=== PATIENT | male | born 1965 | race African-American/Black ===

== ENCOUNTER 2017-02-21 19:10 | Inpatient (IN) | payer MEDICARE, OTHER ==
--- NOTE | 2017-02-21 20:03 | ED Physician Chart ---
Chief Complaint/HPI - Patient Information Date Seen:: 02/21/17 Time Seen:: 19:45 Chief Complaint:: sexual preoccupation History of Present Illness:: Patient was sent here from the [facility] facility where he resides. He has reportedly been exhibiting sexual preoccupation. Exactly what this sexual preoccupation is was not stated. Allergies:: Allergies Allergy/AdvReac Type Severity Reaction Status Date / Time No Known Allergies Allergy Verified 02/21/17 19:51 Vitals:: Vital Signs - 8 hr 02/21/17 19:15 Temp 97.1 F HR 63 RR 18 BP 103/70 O2 Sat % 97 Historian:: Patient, EMS Review:: Nurse's Note Reviewed Review of Systems - Review of Systems General/Constitutional: No fever, No chills Skin: No skin lesions Head: No headache Eyes: No loss of vision ENT: No earache Neck: No neck pain, No swelling Cardio Vascular: No chest pain, No palpitations GI: Nausea, No nausea, No vomiting G/U: No dysuria, No frequency Musculoskeletal: No bone or joint pain Endocrine: No polyuria Psychiatric: Prior psych history Hematopoietic: No bruising Allergic/Immuno: No urticaria Neurological: No syncope, Focal symptoms Past Medical History - Past Medical History Past Medical History: CVA/TIA Family History: Diabetes Mel[place] Social History: Smoker, Alcohol, Other (drinks 2-3 beers per day) Surgical History: None Psychiatricy History: Schizophrenia Physical Exam - Physical Examination General/Constitutional: Awake, No distress Head: Atraumatic Eyes: Lids, conjuctiva normal, PERRL Skin: Nl inspection, No rash, No skin lesions, No ecchymosis ENMT: External ears, nose nl, TM canals nl Neck: No nuchal rigidity Respiratory: Nl effort/Exclusion, Clear to Auscultation Cardio Vascular: No murmur, gallop, rubs GI: No tenderness/rebounding/guarding : No CVA tenderness Other Extremities comments:: Paralysis left arm with flexion deformity left wrist; weakness left leg Other Neuro/Psych comments:: Left-sided paralysis as stated under musculoskeletal Labs/Radiology/EKG Results - Lab Results Comments:: Laboratory Results - last 24 hr 02/21/17 02/21/17 20:45 20:45 WBC 7.0 RBC 5.33 Hgb 15.0 Hct 45.9 MCV 86.2 MCH 28.1 MCHC Differential 32.6 RDW 12.1 Plt Count 261 MPV 6.7 Neutrophils % 63.7 Lymphocytes % 27.9 Monocytes % 5.2 Eosinophils % 3.2 Basophils % 0.0 Sodium 134 L Potassium 4.2 Chloride 103 Carbon Dioxide 27.2 Anion Gap 8.0 BUN 9 Creatinine 0.8 Est GFR ( Amer) > 60.0 Est GFR (Non-Af Amer) > 60.0 BUN/Creatinine Ratio 11.3 Glucose 122 H Calcium 9.6 Triglycerides 115 Cholesterol 116 LDL Cholesterol Direct 67 L HDL Cholesterol 39 - EKG Interpretations Rate & Rhythm: NSR at rate of 71 ED Septic Shock - . 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
[2017-02-21 20:53] LABS: % EOSINOPHILS 3.2 % (0.0-5.0); % LYMPHOCYTES 27.9 % (20.0-50.0); % MONOCYTES 5.2 % (2.0-10.0); % NEUTROPHILS 63.7 % (40.0-80.0); HEMATOCRIT 45.9 % (39.0-49.0); MEAN CELL VOLUME 86.2 fl (80-99); MEAN CORPUSCULAR HEMOGLOBIN 28.1 pg (26.0-30.0); MEAN CORPUSCULAR HGB CONC 32.6 pg (28.0-36.0); MEAN PLATELET VOLUME 6.7 fl; NEUTROPHILE ABSOLUTE 4.4 Th/cmm (1.8-8.0); PLATELET COUNT 261 Th/cmm (150-400); RED BLOOD COUNT 5.33 Mil/cmm (4.30-5.70); RED CELL DISTRIBUTION WIDTH 12.1 % (11.5-20.0)
[2017-02-21 21:07] LABS: BUN - UREA NITROGEN 9 mg/dL (7-25); BUN/CREATININE RATIO 11.3; CALCIUM SERUM 9.6 mg/dL (8.6-10.3); CARBON DIOXIDE 27.2 mEq/L (21.0-31.0); CHLORIDE 103 mEq/L (98-107); CHOLESTEROL 116 mg/dL (<200); CREATININE - SERUM 0.8 mg/dL (0.7-1.3); GLUCOSE 122 mg/dL (70-105); POTASSIUM SERUM 4.2 mEq/L (3.5-5.1); SODIUM SERUM 134 mEq/L (136-145); TRIGLYCERIDES 115 mg/dL (<150)
[2017-02-21] MEDS ORDERED: Maalox 30 mL Cup PO PRN (22:25)
[2017-02-21] MEDS ORDERED: Magnesium Hydroxide (MOM) 30 mL UDC PO PRN (22:25)
[2017-02-21 22:54] VITALS: BP 95/56
[2017-02-22] MEDS: Polyvinyl Alcohol Ophth Soln 15 mL Bottle EACH EYE SCH ×3 (09:11→17:08)
[2017-02-22] MEDS: Insulin Detemir 100 units/mL 10mL Vial SUBQ SCH ×2 (09:47→17:31)
[2017-02-22] MEDS: INSULIN ASPART SLIDING SCALE 100 UNITS/ML UNIT SUBQ SCH ×3 (11:44→20:11)
[2017-02-22 13:14] LABS: HEP B CORE IGM Negative (Negative); HEP C ANTIBODY <0.1 s/co ratio (0.0-0.9)
--- NOTE | 2017-02-22 20:06 | History & Physical ---
ADMIT DATE: 02/22/2017 INTERNAL MEDICINE CONSULTATION HISTORY OF PRESENT ILLNESS: The patient is a 51-year-old male seen in Geropsych unit. PAST MEDICAL HISTORY: Significant for diabetes mellitus, diabetic angiopathy, neuropathy, hypertension, coronary artery disease, hyperlipidemia, peptic ulcer disease, gastritis, arthritis, history of CVA with left hemiplegia. SOCIAL HISTORY: Prior history of smoking. No history of drug or alcohol abuse. FAMILY HISTORY: Not available. REVIEW OF SYSTEMS: The patient ____ to have left-sided weakness, no chest pain, occasional cough, no nausea, no vomiting, extensive arthritic pain. PHYSICAL EXAMINATION: GENERAL: Average male in no obvious respiratory distress. VITAL SIGNS: Include a blood pressure 140/80, heart rate 80, respiration rate of 18. SKIN: No cellulitis. HEENT: Normal conjunctivae. NECK: Supple. LUNGS: Shows occasional rhonchi, occasional crepitation. No bronchial breathing. HEART: S1 and S2 present. ABDOMEN: Soft, minimal epigastric tenderness. Bowel sounds pretty good. EXTREMITIES: Show arthritis. NEUROLOGIC: The patient has left hemiplegia. LABORATORY DATA: Include white count was 7, hemoglobin 15, hematocrit 40.9, platelet count of 261. Sodium 134, potassium 4.2, chloride 103, bicarb 27.2, BUN 9, creatinine 0.8, glucose 122. In view of the exam, the patient's medical diagnoses include diabetes mellitus, diabetic angiopathy, neuropathy, nephropathy, hypertension, hyperlipidemia, coronary artery disease, peptic ulcer disease, gastritis, arthritis, osteoporosis, chronic obstructive pulmonary disease, cerebrovascular accident with left hemiplegia. PLAN: The patient's medicines include sliding scale and Levemir, Zestril, Glucophage, Ambien, Lipitor, Mylanta, Tylenol. Thank you, Dr. Alba for letting me see your patient. JOB# [id number]
[2017-02-22] MEDS: Atorvastatin Calcium 10 MG TAB PO SCH (20:34)
[2017-02-23] MEDS: INSULIN ASPART SLIDING SCALE 100 UNITS/ML UNIT SUBQ SCH ×4 (06:31→20:40)
[2017-02-23] MEDS: Polyvinyl Alcohol Ophth Soln 15 mL Bottle EACH EYE SCH ×2 (09:53→17:21)
[2017-02-23] MEDS: Insulin Detemir 100 units/mL 10mL Vial SUBQ SCH ×2 (10:17→17:21)
--- NOTE | 2017-02-23 17:40 | Psychosocial Evaluation ---
DATE OF SERVICE: 02/21/2017 IDENTIFYING DATA: The patient is a 51-year-old -[place] male, resident of [facility]. Information obtained by interviewing the patient as well as reviewing the admission papers and they are reliable. JUSTIFICATION FOR HOSPITALIZATION: The patient is admitted here on a voluntary basis in view of his agitation. CHIEF COMPLAINT: "I need something to calm down." HISTORY OF PRESENT ILLNESS: This is the first psychiatric hospitalization to the [facility] for this patient who is reported to have been getting easily agitated and out of control. The patient could not be contained at a lower level of care and hence the patient has been referred over here for stabilization. Chart is reviewed. The patient is interviewed. During the interview, the patient has been getting easily upset and is reported to be sexually preoccupied. The patient is reported to have been asking the staff to touch his penis because he cannot urinate. The patient has been diagnosed to have schizoaffective disorder and has been maintained on Abilify and valproic acid and the patient is stating that the medications are not enough and he needs higher doses of medications. The patient has been diagnosed to have CVA and the patient is unsteady and the patient has been in bed at the time that I have been evaluating the patient. PAST PSYCHIATRIC HISTORY: Please refer to the above. MEDICAL HISTORY AND PHYSICAL EXAMINATION: Requested to done by Dr. Mathias. SUBSTANCE ABUSE HISTORY: None. PHYSICAL OR SEXUAL ABUSE HISTORY: None. LEGAL PROBLEMS: None at this time. STRENGTH AND ASSETS: The patient is motivated. MENTAL STATUS EXAMINATION: The patient is a 51-year-old, looking his stated age, superficially cooperative. Eye contact is poor. Mood is noted to be irritable. Affect is constricted. Insight and judgment at this time are noted to be very much impaired. Impulse control is noted to be poor. The patient is acutely preoccupied. The patient has paranoia, but denies any command hallucinations at this time. The patient's behavior is noted to be very inappropriate and has been asking the staff to touch his penis. The patient is alert and oriented x 3, no other cognitive deficits are noted. DIAGNOSTIC IMPRESSION: AXIS I: Schizoaffective disorder. AXIS II: None. AXIS III: As per Dr. Mathias. TREATMENT PLAN: The patient is going to be continued on the Depakote, Abilify and the patient is going to be encouraged to participate in the groups and verbalize the concerns rather than to act out. Once stabilized, the patient is going to be discharged. ESTIMATED LENGTH OF STAY: 3-5 days. DISCHARGE CRITERIA: When he no longer is a threat to self or others and be able to cope up with the stress. [facility]# [id number]
[2017-02-23] MEDS: Atorvastatin Calcium 10 MG TAB PO SCH (20:49)
[2017-02-24] MEDS: INSULIN ASPART SLIDING SCALE 100 UNITS/ML UNIT SUBQ SCH ×4 (06:40→20:39)
--- NOTE | 2017-02-24 08:36 | Progress Notes ---
DATE: 02/23/2017 TIME PATIENT SEEN: 11:00 a.m. SUBJECTIVE: Staff was spoken to. The patient is interviewed. Mood is noted to be irritable. Affect is constricted. Insight and judgment are noted to be very much impaired. Impulse control seems to be poor. Coping skills are also noted to be poor. The patient is still sexually preoccupied and is asking the female staff to come and help him because he is not able to use the urinal. The patient has no limitations with his right upper extremity or left upper extremity. The patient is sexually preoccupied and asked the female staff to touch his penis. The patient has no insight into his illness. The patient is paranoid and is getting easily irritable. ASSESSMENT: The patient is still having mood swings. PLAN: To continue the patient with supportive therapy and followup. JOB# [id number] MTDD
[2017-02-24] MEDS: Insulin Detemir 100 units/mL 10mL Vial SUBQ SCH ×2 (08:47→16:54)
[2017-02-24] MEDS: Polyvinyl Alcohol Ophth Soln 15 mL Bottle EACH EYE SCH ×2 (08:48→16:54)
[2017-02-24] MEDS: Atorvastatin Calcium 10 MG TAB PO SCH (20:39)
--- NOTE | 2017-02-25 02:08 | Progress Notes ---
DATE: 02/24/2017 PSYCHIATRIC PROGRESS NOTE TIME PATIENT SEEN: 08:00 a.m. SUBJECTIVE: Staff was spoken to. The patient is interviewed. The patient's insight and judgment are noted to be still impaired. Impulse control seems to be poor. Coping skills are also noted to be poor. The patient has been having difficult time to cope with the stress. No side effects to medications are noted. The patient has been demanding and intrusive at this time. Sexualized behavior is a major concern. The patient needs to be redirected. ASSESSMENT: The patient is still psychotic. PLAN: To continue the patient with the current medications and follow up with the supportive therapy. JOB# [id number]
[2017-02-25] MEDS: INSULIN ASPART SLIDING SCALE 100 UNITS/ML UNIT SUBQ SCH ×3 (06:36→17:13)
[2017-02-25] MEDS: Insulin Detemir 100 units/mL 10mL Vial SUBQ SCH ×2 (10:00→17:14)
[2017-02-25] MEDS: Polyvinyl Alcohol Ophth Soln 15 mL Bottle EACH EYE SCH ×2 (10:01→17:16)
[2017-02-25] MEDS: Atorvastatin Calcium 10 MG TAB PO SCH (20:59)
--- NOTE | 2017-02-26 02:45 | Progress Notes ---
DATE: 02/25/2017 PSYCHIATRIC PROGRESS NOTE TIME PATIENT SEEN: 10:45 a.m. SUBJECTIVE: Staff was spoken to. The patient is interviewed. Mood is noted to be irritable. Affect is constricted. Insight and judgment are noted to be still impaired. Impulse control seems to be poor. Coping skills are also noted to be poor. The patient has been having difficult time to cope with the stress. ASSESSMENT: The patient is still impulsive, acute mood swings, sexual preoccupation is a concern. PLAN: To continue the patient with the supportive therapy and followup. JOB# [id number]
[2017-02-26] MEDS: INSULIN ASPART SLIDING SCALE 100 UNITS/ML UNIT SUBQ SCH ×5 (03:19→20:39)
[2017-02-26] MEDS: Polyvinyl Alcohol Ophth Soln 15 mL Bottle EACH EYE SCH ×2 (08:46→17:40)
[2017-02-26] MEDS: Insulin Detemir 100 units/mL 10mL Vial SUBQ SCH ×2 (08:46→17:39)
[2017-02-26] MEDS: Atorvastatin Calcium 10 MG TAB PO SCH (20:39)
--- NOTE | 2017-02-27 00:59 | Progress Notes ---
DATE: 02/26/2017 TIME PATIENT SEEN: 6:00 p.m. SUBJECTIVE: Staff was spoken to. The patient is interviewed. The patient's speech is noted to be incoherent and the patient is stating that he needs Xarelto. The patient has no insight into his illness. The patient has been impulsive and has been asking the female staff to help him to urinate even though the patient does not have any problem with the limitations of his upper extremities, the patient wants the females to touch his penis. The patient has no insight into his illness. ASSESSMENT: The patient is still impulsive and demanding. PLAN: To continue the patient with the current medications and follow up with the supportive therapy. [facility]# [id number]
[2017-02-27] MEDS: INSULIN ASPART SLIDING SCALE 100 UNITS/ML UNIT SUBQ SCH ×4 (06:31→20:40)
[2017-02-27] MEDS: Polyvinyl Alcohol Ophth Soln 15 mL Bottle EACH EYE SCH ×2 (09:03→16:36)
[2017-02-27] MEDS: Insulin Detemir 100 units/mL 10mL Vial SUBQ SCH ×2 (09:08→16:35)
[2017-02-27] MEDS: Atorvastatin Calcium 10 MG TAB PO SCH (21:02)
--- NOTE | 2017-02-28 00:39 | Progress Notes ---
DATE: 02/27/2017 TIME PATIENT SEEN: 7:45 a.m. SUBJECTIVE: Staff was spoken to. The patient is interviewed. Mood is noted to be irritable. Affect is constricted. The patient's insight and judgment are noted to be impaired. Impulse control seemed to be poor. Coping skills are also noted to be very poor. The patient is currently on Depakote 125 mg twice a day and the patient is also getting the aripiprazole 30 mg at bedtime, so far, the patient has been able to tolerate the medications, but the inappropriate behavior and asking the people to touch his genitals, he is becoming a major issue. The patient has been trying to be naked on in the bed. In view of this ____ it is decided to increase the dose on the Depakote to 250 mg twice a day and continue the Abilify and follow the patient with the supportive therapy. The patient is not ready to be discharged to a lower level of care yet. JOB# [id number]
[2017-02-28] MEDS: INSULIN ASPART SLIDING SCALE 100 UNITS/ML UNIT SUBQ SCH ×4 (06:35→20:52)
[2017-02-28] MEDS: Polyvinyl Alcohol Ophth Soln 15 mL Bottle EACH EYE SCH ×2 (10:14→18:04)
[2017-02-28] MEDS: Insulin Detemir 100 units/mL 10mL Vial SUBQ SCH ×2 (10:32→18:03)
[2017-02-28] MEDS: Atorvastatin Calcium 10 MG TAB PO SCH (20:51)
--- NOTE | 2017-03-01 04:29 | Progress Notes ---
DATE: 02/28/2017 PSYCHIATRIC PROGRESS NOTE TIME PATIENT SEEN: 11:00 a.m. SUBJECTIVE: Staff was spoken to. The patient is interviewed. Mood is noted to be irritable. Affect is constricted. The patient is demanding that he needs to be on medications, he does not clearly Xarelto. The patient has no insight into his illness. Impulse control seems to be poor, sexual preoccupation . The patient, however, has been compliant with the medications. No side effects to the medications are noted. ASSESSMENT: The patient is still impulsive and sexually preoccupied. PLAN: To continue the patient with supportive therapy, encouraged the patient to verbalize the concerns rather than to act out. [facility]# [id number]
[2017-03-01] MEDS: INSULIN ASPART SLIDING SCALE 100 UNITS/ML UNIT SUBQ SCH ×4 (06:34→21:13)
[2017-03-01] MEDS: Insulin Detemir 100 units/mL 10mL Vial SUBQ SCH ×2 (08:41→16:38)
[2017-03-01] MEDS: Polyvinyl Alcohol Ophth Soln 15 mL Bottle EACH EYE SCH ×2 (09:43→16:40)
[2017-03-01] MEDS: Atorvastatin Calcium 10 MG TAB PO SCH (21:12)
[2017-03-02] MEDS: INSULIN ASPART SLIDING SCALE 100 UNITS/ML UNIT SUBQ SCH ×4 (06:55→20:58)
[2017-03-02] MEDS: Polyvinyl Alcohol Ophth Soln 15 mL Bottle EACH EYE SCH ×2 (08:12→17:13)
[2017-03-02] MEDS: Insulin Detemir 100 units/mL 10mL Vial SUBQ SCH ×2 (08:33→17:12)
--- NOTE | 2017-03-02 11:50 | Progress Notes ---
DATE: 03/01/2017 PSYCHIATRIC PROGRESS NOTE TIME PATIENT SEEN: 10:45 a.m. SUBJECTIVE: Staff was spoken to. The patient is interviewed. Mood is noted to be irritable. Affect is constricted. Coping skills are noted to be poor. The patient gets easily frustrated, is very demanding, and sexual preoccupation is a major concern. The patient is currently on mood stabilizers and antipsychotic medications and has been able to tolerate the medications. The patient is stating that he needs to look for a place and the previous placement is not willing to take the patient back. The manager of case is working with regard to placement issues with the family members. ASSESSMENT: The patient is still having the mood swings impulsive. PLAN: To continue the patient with the supportive therapy and current medications and follow through. JOB# [id number]
[2017-03-02] MEDS: Atorvastatin Calcium 10 MG TAB PO SCH (20:57)
--- NOTE | 2017-03-03 02:01 | Progress Notes ---
DATE: 03/02/2017 PSYCHIATRIC PROGRESS NOTE TIME PATIENT SEEN: 1:45 p.m. SUBJECTIVE: Staff was spoken to. The patient is interviewed. Mood is noted to be dysphoric. Coping skills are noted to be poor. Sleep and appetite also noted to be poor. The patient has been having difficult time to cope with the stress. Mood swings are still a problem. Sexualized behavior is a concern, and the patient needs to be redirected. The patient tends to take the sheets off and then tried to be naked and then expect the staff to help him with his genitals. ASSESSMENT: The patient is still impulsive and paranoid. PLAN: To continue the patient with the supportive therapy and continue current medications and followup. JOB# [id number]
[2017-03-03] MEDS: INSULIN ASPART SLIDING SCALE 100 UNITS/ML UNIT SUBQ SCH ×4 (06:41→21:03)
[2017-03-03] MEDS: Polyvinyl Alcohol Ophth Soln 15 mL Bottle EACH EYE SCH ×2 (08:43→17:16)
[2017-03-03] MEDS: Insulin Detemir 100 units/mL 10mL Vial SUBQ SCH ×2 (08:53→17:16)
--- NOTE | 2017-03-03 13:41 | Admit Criteria Form ---
Admit Criteria Forms - Admit Criteria Diagnosis: PSYCHIATRIC DISORDERS Clinical Indications for Inpatient Care (Place 'X' for any and all applicable criteria): Ongoing inpatient care may be needed for ANY ONE of the following(1)(2)(3)(4)(6) (7)(8): [ ]I. Danger to self or others not manageable at lower level of care. [ ]II. Grave disability (eg, inability to perform self care necessary at lower level of care) [ ]III. Agitation or inappropriate behavior interfering with care for primary condition (eg, attempting to discontinue lines or drains prematurely, unable to cooperate with respiratory care) [X ]IV. Severe disability or disorder indicated by ALL of the following: [X ]a) Severe behavioral health disorder-related symptoms or condition indicated by ANY ONE of the following: [X ]i) Severe problem with cognition, memory, judgment, or impulse control [ ]ii) Severe clinical manifestations (eg, hallucinations, delusions, other acute psychotic symptoms, brigido, extreme agitation or anxiety) [ X]b) Patient management at lower level of care is not feasible until acute intervention or modification is initiated. Extended stay beyond goal length of stay for the primary condition may be indicated when ANY ONE of the following is present: (1)(2)(3)(4): [ ]a) Patient is a danger to self or others and not manageable at lower level of care. [ ]b) Behavior crisis management, including physical or chemical restraints, is required and is not available at a lower level of care. [ ]c) Behavioral symptoms (e.g., agitation, somnolence, inappropriate behavior) are present, and are not manageable at a lower level of care. [ ]d) Patient cannot understand follow-up treatment and crisis plan. [ ]e) Provider and supports are not sufficiently available at lower level of care. [ ]f) Patient cannot participate (e.g., verify absence of plan for harm) and is in needed of monitoring. The original [email or web address] content created by [facility] has been revised. The portions of the content which have been revised are identified through the use of italic text or in bold, and [facility] has neither reviewed nor approved the modified material. All other unmodified content is copyright [facility]. Please see references footnoted in the original [facility] edition 2016 Admit Criteria Met?: Yes
[2017-03-03] MEDS: Atorvastatin Calcium 10 MG TAB PO SCH (20:56)
[2017-03-04] MEDS: INSULIN ASPART SLIDING SCALE 100 UNITS/ML UNIT SUBQ SCH ×2 (06:30→20:32)
[2017-03-04] MEDS: Polyvinyl Alcohol Ophth Soln 15 mL Bottle EACH EYE SCH (09:00)
[2017-03-04] MEDS: Insulin Detemir 100 units/mL 10mL Vial SUBQ SCH (09:02)
--- NOTE | 2017-03-04 09:42 | Progress Notes ---
DATE: 03/03/2017 PSYCHIATRIC PROGRESS NOTE TIME PATIENT SEEN: 1:00 p.m. SUBJECTIVE: Staff was spoken to. The patient is interviewed. Mood is noted to be irritable. Affect is constricted. The patient's coping skills are noted to be poor. The patient is impulsive. The patient is currently on 30 mg of Abilify and is also receiving twice a day. Insight and judgment are noted to be improving today. Impulse control seems to be a little bit better. The patient could be redirected. No side effects to the medications are noted. ASSESSMENT: The patient's mood swings are coming under control. PLAN: To continue the patient with the supportive therapy. I encouraged the patient to verbalize the concerns rather than to act out. JOB# [id number]
[2017-03-04] MEDS: Atorvastatin Calcium 10 MG TAB PO SCH (20:33)
[2017-03-05] MEDS: INSULIN ASPART SLIDING SCALE 100 UNITS/ML UNIT SUBQ SCH ×5 (06:33→20:16)
[2017-03-05] MEDS: Polyvinyl Alcohol Ophth Soln 15 mL Bottle EACH EYE SCH ×3 (09:04→17:00)
[2017-03-05] MEDS: Insulin Detemir 100 units/mL 10mL Vial SUBQ SCH ×3 (09:07→16:59)
--- NOTE | 2017-03-05 19:02 | Progress Notes ---
DATE: 03/04/2017 PSYCHIATRIC PROGRESS NOTE TIME PATIENT SEEN: 10:45 a.m. SUBJECTIVE: Staff was spoken to. The patient is interviewed. Mood is noted to be less irritable. Affect is appropriate. Sexualized behavior has been coming under control. The patient is stating that he has been doing fairly well and would like to continue treatment on an outpatient basis; however, during the interaction with one of the staff nurses, the patient has been making some . ASSESSMENT: The patient is still in need of close monitoring and observation. The patient has been compliant with the medication. media production support manager has been trying to get in touch with the placement, whether the patient is going to be accepted back or not. PLAN: To continue the patient with the supportive therapy and closely monitor the behavior. JOB# [id number]
[2017-03-05] MEDS: Atorvastatin Calcium 10 MG TAB PO SCH (20:16)
[2017-03-06] MEDS: INSULIN ASPART SLIDING SCALE 100 UNITS/ML UNIT SUBQ SCH ×4 (06:39→21:03)
[2017-03-06] MEDS: Polyvinyl Alcohol Ophth Soln 15 mL Bottle EACH EYE SCH ×2 (08:55→17:01)
[2017-03-06] MEDS: Insulin Detemir 100 units/mL 10mL Vial SUBQ SCH ×2 (08:59→17:01)
--- NOTE | 2017-03-06 14:36 | Progress Notes ---
DATE: 03/05/2017 TIME PATIENT SEEN: 10:45 a.m. SUBJECTIVE: Staff was spoken to. The patient is interviewed. Mood is noted to be less irritable. The patient's sexualized behavior has been a major concern and the patient comments towards the female staff are problem. advertising project manager has been trying to contact the facility to see if he is going to be accepted back. So far, no response has been obtained. The patient is being closely monitored and contained with mood stabilizers and antipsychotic medications to deal with the impulsivity. PLAN: To continue the patient with the supportive therapy and followup. JOB# [id number]
[2017-03-06] MEDS: Atorvastatin Calcium 10 MG TAB PO SCH (20:51)
[2017-03-07] MEDS: INSULIN ASPART SLIDING SCALE 100 UNITS/ML UNIT SUBQ SCH ×4 (06:30→21:57)
--- NOTE | 2017-03-07 06:57 | Progress Notes ---
DATE: 03/06/2017 PSYCHIATRIC PROGRESS NOTE TIME PATIENT SEEN: 4:45 p.m. SUBJECTIVE: Staff was spoken to. The patient is interviewed. Mood is noted to be irritable. Affect is constricted. Insight and judgment at this time are noted to be still impaired. The patient is sexually preoccupied and has been masturbating, and the patient is also asking the staff, particularly the female staff, to come and help him to get to urinals. The patient has no insight into his illness. Coping skills are noted to be still impaired and the patient's case management rn has been trying to get in touch with the facility whether he is going to be accepted back or not. In view of the patient's impulsivity and then his sexualized behavior, it is decided to increase the dose on the Depakote to 250 mg 3 times a day, and encouraged the patient to verbalize the concerns rather than to act out. JOB# [id number]
[2017-03-07] MEDS: Insulin Detemir 100 units/mL 10mL Vial SUBQ SCH ×2 (08:42→16:41)
[2017-03-07] MEDS: Polyvinyl Alcohol Ophth Soln 15 mL Bottle EACH EYE SCH ×2 (08:44→16:40)
[2017-03-07] MEDS: Atorvastatin Calcium 10 MG TAB PO SCH (20:23)
[2017-03-08] MEDS: INSULIN ASPART SLIDING SCALE 100 UNITS/ML UNIT SUBQ SCH ×4 (06:35→21:00)
[2017-03-08] MEDS: Polyvinyl Alcohol Ophth Soln 15 mL Bottle EACH EYE SCH ×2 (08:29→17:20)
[2017-03-08] MEDS: Insulin Detemir 100 units/mL 10mL Vial SUBQ SCH ×2 (08:31→16:42)
--- NOTE | 2017-03-08 17:38 | Progress Notes ---
DATE: 03/07/2017 PSYCHIATRIC PROGRESS NOTE TIME PATIENT SEEN: 11:30 a.m. SUBJECTIVE: Staff was spoken to. The patient is interviewed. Mood is noted to be irritable. Affect is constricted. Coping skills are noted to be poor. The patient is getting frustrated for being in here, but patient continues to use sexualized language towards the nursing staff and female staff have to stay away from him. Insight and judgment are noted to be still impaired. The patient's sister has been insisting that he needs to be placed close to where she lives. senior benefits manager has been looking for placement. No side effects to the medications are noted at this time. PLAN: To closely monitor and follow up on the [facility] level. JOB# [id number]
[2017-03-08] MEDS: Atorvastatin Calcium 10 MG TAB PO SCH (20:57)
--- NOTE | 2017-03-09 02:57 | Progress Notes ---
DATE: 03/08/2017 PSYCHIATRIC PROGRESS NOTE TIME PATIENT SEEN: 5:15 p.m. SUBJECTIVE: Staff was spoken to. The patient is interviewed. Mood is noted to be irritable. Affect is constricted. The patient is still exposing himself. Insight and judgment are noted to be still impaired. Impulse control seems to be limited. Coping skills are noted to be fair. No side effects to the medications are noted. The patient has been having difficult time to follow the directions today. The patient tends to seek negative attention. The patient has been on Depakote 250 mg 3 times a day, and the patient is also on aripiprazole 30 mg. The patient has been complaining of dry mouth and hence changed to only once a day and the patient is going to be closely monitored and followed up with the supportive therapy. JOB# [id number]
[2017-03-09] MEDS: INSULIN ASPART SLIDING SCALE 100 UNITS/ML UNIT SUBQ SCH ×4 (06:45→20:28)
[2017-03-09] MEDS: Polyvinyl Alcohol Ophth Soln 15 mL Bottle EACH EYE SCH ×2 (08:24→16:46)
[2017-03-09] MEDS: Insulin Detemir 100 units/mL 10mL Vial SUBQ SCH ×2 (09:00→16:45)
[2017-03-09] MEDS: Atorvastatin Calcium 10 MG TAB PO SCH (20:47)
[2017-03-10] MEDS: INSULIN ASPART SLIDING SCALE 100 UNITS/ML UNIT SUBQ SCH ×4 (06:30→21:02)
--- NOTE | 2017-03-10 08:09 | Progress Notes ---
DATE: 03/09/2017 PSYCHIATRIC PROGRESS NOTE TIME PATIENT SEEN: 10:15 a.m. SUBJECTIVE: Staff was spoken to. The patient is interviewed. Mood is noted to be irritable. Affect is constricted. Insight and judgment at this time are noted to be still impaired. Impulse control seems to be poor. The patient is still sexually preoccupied and has been asking the female staff to put cream on his genitals. No side effects to the medications are noted. The patient is currently being followed up with [facility] and the patient is not willing to comply with the treatment so far and needs to be redirected. PLAN: To continue the patient with the supportive therapy and followup. JOB# [id number]
[2017-03-10] MEDS: Polyvinyl Alcohol Ophth Soln 15 mL Bottle EACH EYE SCH ×2 (08:28→16:53)
[2017-03-10] MEDS: Insulin Detemir 100 units/mL 10mL Vial SUBQ SCH ×2 (08:34→17:01)
[2017-03-10] MEDS: Atorvastatin Calcium 10 MG TAB PO SCH (21:01)
[2017-03-11] MEDS: INSULIN ASPART SLIDING SCALE 100 UNITS/ML UNIT SUBQ SCH ×4 (06:30→21:19)
--- NOTE | 2017-03-11 06:30 | Progress Notes ---
DATE: 03/10/2017 PSYCHIATRIC PROGRESS NOTE TIME PATIENT SEEN: 2:15 p.m. SUBJECTIVE: Staff was spoken to. The patient is interviewed. Mood is noted to be irritable. Affect is constricted. Insight and judgment at this time are noted to be improving. Impulse control seems to be fair. The patient is not presenting with any sexualized behavior today. The patient, however, has been getting frustrated for being in here for too long. No side effects of medications are noted. ASSESSMENT: The patient is stabilizing. PLAN: To discharge the patient possibly tomorrow to the placement. JOB# [id number]
[2017-03-11] MEDS: Polyvinyl Alcohol Ophth Soln 15 mL Bottle EACH EYE SCH ×2 (08:42→16:11)
[2017-03-11] MEDS: Insulin Detemir 100 units/mL 10mL Vial SUBQ SCH ×2 (08:42→16:07)
--- NOTE | 2017-03-11 12:21 | Progress Notes ---
DATE: 03/11/2017 PSYCHIATRIC PROGRESS NOTE TIME PATIENT SEEN: 8:15 a.m. SUBJECTIVE: Staff was spoken to. The patient is interviewed. Mood is noted to be less irritable. Affect is appropriate. The patient is he is following the directions and the patient has been trying to cope with the stress. No side effects to the medications are noted. The patient needs to be redirected at this time. ASSESSMENT: The patient is stabilizing and awaiting placement. PLAN: To continue the patient with supportive therapy and followup. JOB# [id number]
[2017-03-11] MEDS: Atorvastatin Calcium 10 MG TAB PO SCH (20:48)
== END 2017-03-11 22:15 | DRG 885 ==
LOC: ER 19:10 → GERO 21:36
PROVIDERS: ADMIT Psychiatry & Neurology Psychiatry; ATTEND Psychiatry & Neurology Psychiatry
DX: F25.9 Schizoaffective disorder, unspecified (principal); E11.21 Type 2 diabetes mellitus with diabetic nephropathy; E11.40 Type 2 diabetes mellitus with diabetic neuropathy, unspecified; I69.354 Hemiplegia and hemiparesis following cerebral infarction affecting left non-dominant side; E11.51 Type 2 diabetes mellitus with diabetic peripheral angiopathy without gangrene; I10 Essential (primary) hypertension; E78.5 Hyperlipidemia, unspecified; I25.10 Atherosclerotic heart disease of native coronary artery without angina pectoris; M81.0 Age-related osteoporosis without current pathological fracture; J44.9 Chronic obstructive pulmonary disease, unspecified; Z87.11 Personal history of peptic ulcer disease
CPT/HCPCS: 36415-UA; 80048-TC; 80061-TC; 80074-90; 82948-90; 84443-TC; 85025-TC; 86592-TC; 90899; 93005; J1815; Q0162; Z7610